=== PATIENT | male | born 1955 | race Caucasian/White ===

== ENCOUNTER → 2020-05-31 08:40 | Outpatient (CLI) | payer MEDICARE, OTHER, SELFPAY ==
--- NOTE | 2020-05-31 | DI.CT.S_ITS ---
PROCEDURE: CT SINUS SCREEN WO CON INDICATIONS: OTHER SPECIFIED DISORDERS OF THE NOSE AND SINUS TISSUE TECHNIQUE: Noncontrast 3.0 mm axial images acquired from the frontal sinuses to the mid-sella, with coronal and sagittal reformats. For radiation dose reduction, the following was used: automated exposure control, adjustment of mA and/or kV according to patient size. COMPARISON: None. FINDINGS: Image quality: Excellent. Maxillary Sinuses: At least moderate mucosal thickening can be seen involving the maxillary sinuses, right worse than left. There is demineralization seen, particularly involving the medial resendiz of the maxillary sinuses. Ethmoid Air Cells: There is complete opacification of the ethmoid air cells. The ethmoid air cell septations are demineralized. Sphenoid Sinuses: The sphenoid sinuses are completely opacified. Mild demineralization can be seen. Frontal Sinuses: There is complete opacification of the frontal sinuses. There is demineralization seen of the frontal sinus septations. Ostiomeatal Complexes: Completely opacified and demineralized. Miscellaneous: Visualized intra-orbital contents are normal. There is prominent opacification was soft tissue seen involving the nasal cavity, particularly superiorly. The superior turbinates and the middle turbinates are highly to mineralized. Portions of the nasal septum are demineralized. There is moderate leftward nasal septal deviation seen. IMPRESSION: Nasal polyp disease, with advanced, chronic sinus disease. The frontal sinuses, the ethmoid air cells, and the sphenoid sinuses are completely opacified, with at least moderate mucosal thickening seen within the maxillary sinuses. Areas of prominent demineralization can be seen. Dictated by: Sebastian Adame M.D. on 05/31/2020 at 8:10 Approved by: Sebastian Adame M.D. on 05/31/2020 at 8:12
== END ==
PROVIDERS: PCP Family Medicine; Referring Provider Otolaryngology; Visit Provider Otolaryngology
DX: J32.4 Chronic pansinusitis (principal); J33.8 Other polyp of sinus; J34.89 Other specified disorders of nose and nasal sinuses; J34.2 Deviated nasal septum
CPT/HCPCS: 70486